=== PATIENT | male | born 1950 | race Caucasian/White ===

== ENCOUNTER → 2016-09-04 | Outpatient (CLI) | payer MEDICARE, BC ==
[2016-09-04 10:45] LABS: ANION GAP 14 (5-19); BLOOD UREA NITROGEN 12 mg/dL (7-20); CARBON DIOXIDE 28 mmol/L (22-30); CHLORIDE 102 mmol/L (98-107); CREATININE RESULT 0.73 mg/dL (0.52-1.25); POTASSIUM 4.4 mmol/L (3.6-5.0); SODIUM 143.8 mmol/L (137-145)
== END ==
LOC: OD 09:13
PROVIDERS: ATTEND Internal Medicine
DX: M10.9 Gout, unspecified (principal); I10 Essential (primary) hypertension
CPT/HCPCS: 36415; 80051; 82565; 84520; 84550

== ENCOUNTER 2017-01-23 09:35 | Day surgery (SDC) | payer MEDICARE, BC ==
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
[~2017-01-23 09:35] MED LIST: EPINEPHRINE INJ 1 MG/10 ML DISP.SYRIN ONE; FLUMAZENIL INJ 0.5 MG/5 ML VIAL ONE; GLUCAGON,HUMAN RECOMB 1 MG INJ ONE; GLYCOPYRROLATE INJ 0.4 MG/2 ML VIAL ONE; LIDOCAINE 2% JELLY 30 ML TUBE ONE; MIDAZOLAM 2 MG/2 ML INJ ONE; NALOXONE HCL INJ/PF 0.4 MG/1 ML SDV ONE; ONDANSETRON HCL INJ/PF 4 MG/2 ML SDV ONE
[2017-01-23] MEDS: FENTANYL CITRATE INJ/PF 100 MCG/2 ML AMPUL ONE ×2 (10:45→10:47)
[2017-01-23 11:55] LABS: ABSOLUTE BASOPHILS # (AUTO) 0.1 10^3/uL (0.0-0.2); ABSOLUTE EOSINOPHILS # (AUTO) 0.3 10^3/uL (0.0-0.6); ABSOLUTE LYMPHOCYTES (AUTO) 1.5 10^3/uL (0.5-4.7); ABSOLUTE MONOCYTES (AUTO) 0.6 10^3/uL (0.1-1.4); ABSOLUTE NEUT (AUTO) 5.9 10^3/uL (1.7-8.2); BASOPHILS % (AUTO) 0.7 % (0-2); EOSINOPHILS % (AUTO) 3.2 % (0-6); HEMATOCRIT 45.2 % (37.9-51.0); HEMOGLOBIN 14.8 g/dL (13.5-17.0); HGB HCT DIFFERENCE -0.8; LYMPHOCYTES % (AUTO) 18.3 % (13-45); MEAN CORPUSCULAR HEMOGLOBIN 30.6 pg (27.0-33.4); MEAN CORPUSCULAR HGB CONC 32.7 g/dL (32.0-36.0); MEAN CORPUSCULAR VOLUME 94 fl (80-97); MONOCYTES % (AUTO) 6.9 % (3-13); RED BLOOD COUNT 4.84 10^6/uL (4.35-5.55); RED CELL DISTRIBUTION WIDTH 14.2 % (11.5-14.0); SEGMENTED NEUTROPHILS % (AUTO) 70.9 % (42-78); WHITE BLOOD COUNT 8.3 10^3/uL (4.0-10.5)
[2017-01-23 11:59] VITALS: BP 124/79
--- NOTE | 2017-01-23 13:42 | OPERATIVE REPORT E ---
Operative Report NAME: TIMMY MARTINEZ : 1950 AGE: 67Y DATE OF SURGERY: 01/23/2017 ROOM: PREOPERATIVE DIAGNOSIS: COLON SCREENING. POSTOPERATIVE DIAGNOSES: 1. DIMUNITIVE RECTAL POLYPS. 2. EXTERNAL HEMORRHOIDS. 3. A 2 MM POLYP; SIGMOID. PROCEDURE: Colonoscopy to the cecum. SURGEON: ANGELITO HOPKINS M.D. ANESTHESIA: Versed 2, fentanyl 100; combination TISSUE REMOVED OR ALTERED: 1. Polyp, sigmoid. 2. Biopsy: Polyps, rectum. COMMENTS: Patient's prep was complete but inadequate. Moderate amount of stool, liquidy, scattered all around the colon. DESCRIPTION: RECTAL EXAM: External hemorrhoids. Dimunitive polyps, rectum. SIGMOID: Diverticulosis. DESCENDING COLON: Diverticulosis. TRANSVERSE COLON: Normal. ASCENDING: Normal. CECUM: Normal. Scope withdrawn: Cecum, ascending, transverse, descending, sigmoid, all the way to the rectum. Patient tolerated the procedure well. Discharged to his room in stable condition. CONCLUSION: 1. DIMUNITIVE POLYPS, RECTUM AND SIGMOID. 2. MILD DIVERTICULOSIS, SIGMOID COLON. PLAN: Because of the inadequate prep, multiplicity of tiny polyps pending biopsy, consideration for follow-up colonoscopy after 1 year with better prep. DICTATING PHYSICIAN: ANGELITO HOPKINS M.D. 1265M [id number] PHY#: [id number] ID: [id number] JOB#: [id number] ACCT: [id number] cc:ANGELITO HOPKINS M.D., MICHAEL M.D. >
--- NOTE | 2017-01-23 14:16 | DISCHARGE SUMMARY E ---
Discharge Summary NAME: TIMMY MARTINEZ : 1950 AGE: 67Y ADMITTED: 01/23/2017 DISCHARGED: 01/23/2017 HISTORY OF PRESENT ILLNESS: The patient is 66, underwent colonoscopy today showed sigmoid diverticulosis, external hemorrhoids. He has rectal bleeding secondary to hemorrhoids. DISCHARGE PLAN: Awaiting biopsy, baseline CBC. Consideration for followup colonoscopy after one year with better prep. Awaiting biopsies. Soft low residue diet. Hold aspirin, nonsteroidal for 5 days. DICTATING PHYSICIAN: ANGELITO HOPKINS M.D. [id number] PHY#: [id number] ID: [id number] JOB#: [id number] ACCT: [id number] cc:ANGELITO HOPKINS M.D., MICHAEL M.D. >
== END 2017-01-23 12:10 | disposition home or self-care (01) ==
LOC: END 09:35
PROVIDERS: ATTEND Specialist
PROC: 0DBP8ZX Excision of Rectum, Via Natural or Artificial Opening Endoscopic, Diagnostic (ICD-10-PCS; 2017-01-23)
PROC: 0DBN8ZX Excision of Sigmoid Colon, Via Natural or Artificial Opening Endoscopic, Diagnostic (ICD-10-PCS; principal; 2017-01-23 10:00)
DX: K63.5 Polyp of colon (principal); K57.30 Diverticulosis of large intestine without perforation or abscess without bleeding; K64.4 Residual hemorrhoidal skin tags; I10 Essential (primary) hypertension; K40.90 Unilateral inguinal hernia, without obstruction or gangrene, not specified as recurrent; Z79.82 Long term (current) use of aspirin
CPT/HCPCS: 45380; 36415; 85025; 88305 ×2; J2250; J3010; J1610; J0171; J2310; J2405; J3490

== ENCOUNTER → 2017-07-31 | Outpatient (CLI) | payer MEDICARE, BC ==
[2017-07-31 09:08] LABS: ABSOLUTE BASOPHILS # (AUTO) 0.1 10^3/uL (0.0-0.2); ABSOLUTE EOSINOPHILS # (AUTO) 0.4 10^3/uL (0.0-0.6); ABSOLUTE MONOCYTES (AUTO) 0.8 10^3/uL (0.1-1.4); ABSOLUTE NEUT (AUTO) 7.9 10^3/uL (1.7-8.2); BASOPHILS % (AUTO) 0.7 % (0-2); EOSINOPHILS % (AUTO) 3.7 % (0-6); HEMOGLOBIN 15.1 g/dL (13.5-17.0); LYMPHOCYTES % (AUTO) 17.7 % (13-45); MEAN CORPUSCULAR HEMOGLOBIN 30.5 pg (27.0-33.4); MEAN CORPUSCULAR HGB CONC 33.5 g/dL (32.0-36.0); MEAN CORPUSCULAR VOLUME 91 fl (80-97); MONOCYTES % (AUTO) 6.9 % (3-13); PLATELET COUNT 211 10^3/uL (150-450); RED BLOOD COUNT 4.94 10^6/uL (4.35-5.55); RED CELL DISTRIBUTION WIDTH 14.1 % (11.5-14.0); TOTAL CELLS COUNTED % (AUTO) 100 %; WHITE BLOOD COUNT 11.1 10^3/uL (4.0-10.5)
[2017-07-31 09:41] LABS: ALANINE AMINOTRANSFERASE 40 U/L (21-72); ALBUMIN 4.4 g/dL (3.5-5.0); ALKALINE PHOSPHATASE 70 U/L (38-126); ANION GAP 13 (5-19); ASPARTATE AMINO TRANSFERASE 23 U/L (17-59); BILIRUBIN,DIRECT 0.4 mg/dL (0.0-0.4); BILIRUBIN,TOTAL 0.5 mg/dL (0.2-1.3); BLOOD UREA NITROGEN 16 mg/dL (7-20); CALCIUM 10.2 mg/dL (8.4-10.2); CARBON DIOXIDE 25 mmol/L (22-30); CHLORIDE 104 mmol/L (98-107); CHOLESTEROL 155.94 mg/dL (0-200); GLUCOSE 102 mg/dL (75-110); POTASSIUM 4.4 mmol/L (3.6-5.0); TOTAL PROTEIN 6.8 g/dL (6.3-8.2); TRIGLYCERIDES 217 mg/dL (<150)
[2017-07-31 09:52] LABS: DIRECT LDL 88 mg/dL (<100)
[2017-07-31 10:16] LABS: VLDL CHOLESTEROL 43.4 mg/dL (10-31)
== END ==
LOC: OD 08:26
PROVIDERS: ATTEND Internal Medicine
DX: I10 Essential (primary) hypertension (principal); R35.1 Nocturia; E78.5 Hyperlipidemia, unspecified; R53.83 Other fatigue; M10.9 Gout, unspecified
CPT/HCPCS: 36415; 80053; 80061; 84153; 84443; 85025

== ENCOUNTER → 2018-07-09 | Outpatient (CLI) | payer MEDICARE, BC ==
--- NOTE | 2018-07-09 11:15 | RADIOLOGY REPORT (SQ) ---
EXAM DESCRIPTION: CT HEAD WITHOUT COMPLETED DATE/TIME: 07/09/2018 10:57 am REASON FOR STUDY: CVA (I63.9) I63.9 CEREBRAL INFARCTION, UNSPECIFIED COMPARISON: None. TECHNIQUE: Axial images acquired through the brain without intravenous contrast. Images reviewed wi th bone, brain and subdural windows. Additional sagittal and coronal reconstructions were generated. Images stored on PACS. All CT scanners at this facility use dose modulation, iterative reconstruction, and/or weight based d osing when appropriate to reduce radiation dose to as low as reasonably achievable (ALARA). [facility]: Dose Right [facility]: CareDose [facility]: Dose Right [facility]: Teradose 4D [facility]: Qualvu RADIATION DOSE: CT Rad equipment meets quality standard of care and radiation dose reduction techniq ues were employed. CTDIvol: 48.7 mGy. DLP: 955 mGy-cm.mGy. LIMITATIONS: None. FINDINGS: VENTRICLES: Mildly prominent, expected for patient age. CEREBRUM: No masses. No hemorrhage. No midline shift. Focal area of hypoattenuation within the lef t periventricular temporal lobe compatible with age-indeterminate lacunar infarct. No additional kristine dence of acute large vascular territory infarct. CEREBELLUM: No masses. No hemorrhage. No alteration of density. No evidence for acute infarction. EXTRAAXIAL SPACES: No fluid collections. No masses. ORBITS AND GLOBE: No intra- or extraconal masses. Normal contour of globe without masses. CALVARIUM: No fracture. PARANASAL SINUSES: No fluid or mucosal thickening. SOFT TISSUES: No mass or hematoma. OTHER: Scattered vascular calcifications. IMPRESSION: Focal area of hypoattenuation within the periventricular left temporal lobe compatible w ith age-indeterminate lacunar infarct. If clinical concern for acute ischemic event MRI would be mor e sensitive for further characterization of chronicity. Otherwise, no evidence of acute intracranial process. EVIDENCE OF ACUTE STROKE: Age-indeterminate lacunar infarct Findings discussed with Dr. Daly at 1108 a.m. on 07/09/2018. TECHNICAL DOCUMENTATION: JOB ID: [id number] Quality ID # [id number]: Final reports with documentation of one or more dose reduction techniques (e.g., Au tomated exposure control, adjustment of the mA and/or kV according to patient size, use of iterative reconstruction technique) 2010 [employer]- All Rights Reserved Reading location - IP/workstation name: [email or web address] / [email or web address]
== END ==
LOC: RAD 10:39
PROVIDERS: ATTEND Internal Medicine
DX: I63.9 Cerebral infarction, unspecified (principal)
CPT/HCPCS: 70450

== ENCOUNTER → 2018-07-10 | Outpatient (CLI) | payer MEDICARE, BC ==
[2018-07-10 10:14] LABS: ABSOLUTE BASOPHILS # (AUTO) 0.1 10^3/uL (0.0-0.2); ABSOLUTE EOSINOPHILS # (AUTO) 0.2 10^3/uL (0.0-0.6); ABSOLUTE LYMPHOCYTES (AUTO) 1.4 10^3/uL (0.5-4.7); ABSOLUTE MONOCYTES (AUTO) 0.5 10^3/uL (0.1-1.4); ABSOLUTE NEUT (AUTO) 4.3 10^3/uL (1.7-8.2); BASOPHILS % (AUTO) 0.9 % (0-2); EOSINOPHILS % (AUTO) 3.4 % (0-6); HEMATOCRIT 46.8 % (37.9-51.0); LYMPHOCYTES % (AUTO) 22.1 % (13-45); MEAN CORPUSCULAR HEMOGLOBIN 31.3 pg (27.0-33.4); MEAN CORPUSCULAR HGB CONC 34.2 g/dL (32.0-36.0); MEAN CORPUSCULAR VOLUME 92 fl (80-97); MONOCYTES % (AUTO) 8.1 % (3-13); PLATELET COUNT 208 10^3/uL (150-450); RED BLOOD COUNT 5.11 10^6/uL (4.35-5.55); RED CELL DISTRIBUTION WIDTH 14.2 % (11.5-14.0); SEGMENTED NEUTROPHILS % (AUTO) 65.5 % (42-78); TOTAL CELLS COUNTED % (AUTO) 100 %; WHITE BLOOD COUNT 6.5 10^3/uL (4.0-10.5)
[2018-07-10 10:42] LABS: ALANINE AMINOTRANSFERASE 36 U/L (21-72); ALBUMIN 4.8 g/dL (3.5-5.0); ALKALINE PHOSPHATASE 69 U/L (38-126); ANION GAP 11 (5-19); ASPARTATE AMINO TRANSFERASE 29 U/L (17-59); BILIRUBIN,DIRECT 0.2 mg/dL (0.0-0.4); BILIRUBIN,TOTAL 0.7 mg/dL (0.2-1.3); BLOOD UREA NITROGEN 13 mg/dL (7-20); CARBON DIOXIDE 29 mmol/L (22-30); CHLORIDE 101 mmol/L (98-107); CHOLESTEROL 136.72 mg/dL (0-200); GLUCOSE 100 mg/dL (75-110); POTASSIUM 4.5 mmol/L (3.6-5.0); SODIUM 140.7 mmol/L (137-145); TOTAL PROTEIN 7.2 g/dL (6.3-8.2); TRIGLYCERIDES 117 mg/dL (<150)
[2018-07-10 10:54] LABS: DIRECT LDL 86 mg/dL (<100)
== END ==
LOC: OD 09:18
PROVIDERS: ATTEND Internal Medicine
DX: I10 Essential (primary) hypertension (principal); E78.5 Hyperlipidemia, unspecified; R53.83 Other fatigue; Z86.73 Personal history of transient ischemic attack (TIA), and cerebral infarction without residual deficits
CPT/HCPCS: 36415; 80053; 80061; 84443; 85025

== ENCOUNTER → 2018-07-12 | Outpatient (CLI) | payer MEDICARE, BC ==
--- NOTE | 2018-07-12 11:08 | RADIOLOGY REPORT (SQ) ---
EXAM DESCRIPTION: ORBITS 4 COMPLETED DATE/TIME: 07/12/2018 10:56 am REASON FOR STUDY: FOR MRI SCREENING I63.9 CEREBRAL INFARCTION, UNSPECIFIED COMPARISON: None. NUMBER OF VIEWS: Three view. TECHNIQUE: Images of the facial bones acquired. LIMITATIONS: None. FINDINGS: ORBITS: There is a metallic foreign body in the periorbital soft tissues on the left. SINUSES: No mucosal thickening. No air fluid levels. FACIAL BONES: No fracture. OTHER: No other significant finding. IMPRESSION: Foreign body periorbital soft tissues on the left. COMMENT: MRI is contraindicated. TECHNICAL DOCUMENTATION: JOB ID: [id number] [employer]- All Rights Reserved Reading location - IP/workstation name: [email or web address]
== END ==
LOC: RAD 10:20
PROVIDERS: ATTEND Internal Medicine
DX: I63.9 Cerebral infarction, unspecified (principal); M79.5 Residual foreign body in soft tissue
CPT/HCPCS: 70200

== ENCOUNTER → 2018-07-15 | Outpatient (CLI) | payer MEDICARE, BC ==
--- NOTE | 2018-07-15 14:13 | RADIOLOGY REPORT (SQ) ---
EXAM DESCRIPTION: CAROTID DOPPLER COMPLETED DATE/TIME: 07/15/2018 1:50 pm REASON FOR STUDY: TIA G45.9 TRANSIENT CEREBRAL ISCHEMIC ATTACK, UNSPECIFIED I63.9 CEREBRAL INFARCT ION, UNSPECIFIED COMPARISON: None. TECHNIQUE: Grayscale ultrasound, Doppler velocity and spectra, and color Doppler images acquired of the extra-cranial carotid and vertebral arteries. Images stored on PACS. LIMITATIONS: None. FINDINGS: RIGHT CAROTID CCA Velocities: Within normal limits. ICA Velocities Peak systolic 82 cm/s. End diastolic 31 cm/s. Proximal ICA/CCA peak systolic ratio 1.31. There is some shadowing plaque in the carotid bulb and proximal external carotid. LEFT CAROTID CCA Velocities: Within normal limits. ICA Velocities Peak systolic 75 cm/s. End diastolic 29 cm/s. Proximal ICA/CCA peak systolic ratio 0.83. There is dense shadowing plaque in the carotid bulb. VERTEBRAL ARTERIES: Antegrade flow. Normal waveforms. SUBCLAVIAN ARTERIES: No finding. OTHER: No other significant finding. IMPRESSION: NO HEMODYNAMICALLY SIGNIFICANT STENOSIS. COMMENT: Quality ID #[id number]: Velocity criteria are extrapolated from the diameter data as defined by t he Society of Radiologists in Ultrasound Consensus Conference. Radiology 2003: 229; 340-346. TECHNICAL DOCUMENTATION: JOB ID: [id number] [employer]- All Rights Reserved Reading location - IP/workstation name: [email or web address]
--- NOTE | 2018-07-16 23:04 | XCELERA REPORT ---
[address] [address] Transthoracic Echocardiogram Report Name: TIMMY MARTINEZ Age: 68 yrs Gender: Male : 1950 Patient Status: Outpatient Patient Location: Study Date: 07/15/2018 10:32 AM Height: 70 in Weight: 210 lb BSA: 2.1 m2 Procedure: A two-dimensional transthoracic echocardiogram with color flow and Doppler was performed. The study was technically difficult with many images being suboptimal in quality. Reason For Study: TIA History: TIA. Ordering Physician: FABIENNE MACHADO Performed By: Meng Pollock Interpretation Summary The left ventricle is normal in size. There is mild concentric left ventricular hypertrophy. LV EF is 65% The left ventricular ejection fraction is within normal limits. Doppler measurements suggest impaired left ventricular relaxation, which is associated with grade I/IV or mild diastolic dysfunction The left ventricular wall motion is normal. There is no thrombus. There is no ventricular septal defect visualized. The right ventricle is not well visualized secondary to technical limitations The right atrium is normal. The left atrial size is normal. The interatrial septum is intact with no evidence for an atrial septal defect. There is no evidence of mitral valve prolapse. There is no vegetation seen on the mitral valve. There is no mitral valve stenosis. There is a trace amount of mitral regurgitation There is no aortic valvular vegetation. There is no aortic valve stenosis There is no LVOT obstruction. No aortic regurgitation is present. There is no tricuspid stenosis. There is a trace to mild amount of tricuspid regurgitation There is mild pulmonary hypertension by echo RVSP is 29 to 34 mm of Hg , with RA mean of 5 to 10. There is no pulmonic valvular stenosis. There is a trace amount of pulmonic regurgitation The aortic root is normal size. The inferior vena cava appeared normal and decreased > 50% with respiration (RAP 5-10 mmHg) There is no pericardial effusion. MMode/2D Measurements & Calculations RVDd: 3.2 cm LVIDd: 4.1 cm FS: 37.2 % Ao root diam: 3.0 cm IVSd: 1.2 cm LVIDs: 2.6 cm EDV(Teich): 74.0 ml Ao root area: 6.9 cm2 LVPWd: 1.2 cm ESV(Teich): 23.9 ml LA dimension: 3.9 cm EF(Teich): 67.7 % Doppler Measurements & Calculations MV E max obed: MV P1/2t max obed: Ao V2 max: LV V1 max P.8 cm/sec 68.9 cm/sec 118.7 cm/sec 5.2 mmHg MV A max obed: MV P1/2t: 68.7 msec Ao max PG: LV V1 max: 77.1 cm/sec MVA(P1/2t): 3.2 cm2 5.6 mmHg 113.9 cm/sec MV E/A: 0.85 MV dec slope: 293.5 cm/sec2 MV dec time: 0.20 sec PA V2 max: PI end-d obed: TR max obed: MV P1/2t-pr_phl: 102.2 cm/sec 117.3 cm/sec 243.0 cm/sec 68.7 msec PA max PG: TR max P.2 mmHg 23.6 mmHg Left Ventricle The left ventricle is normal in size. There is mild concentric left ventricular hypertrophy. LV EF is 65%. The left ventricular ejection fraction is within normal limits. Doppler measurements suggest impaired left ventricular relaxation, which is associated with grade I/IV or mild diastolic dysfunction. The left ventricular wall motion is normal. There is no thrombus. There is no ventricular septal defect visualized. Right Ventricle The right ventricle is not well visualized secondary to technical limitations. Atria The right atrium is normal. The left atrial size is normal. The interatrial septum is intact with no evidence for an atrial septal defect. Mitral Valve There is mild mitral leaflet calcification. There is no evidence of mitral valve prolapse. There is no vegetation seen on the mitral valve. There is no mitral valve stenosis. There is a trace amount of mitral regurgitation. Aortic Valve There is no aortic valvular vegetation. There is no aortic valve stenosis. There is no LVOT obstruction. No aortic regurgitation is present. Tricuspid Valve There is no tricuspid stenosis. There is a trace to mild amount of tricuspid regurgitation. There is mild pulmonary hypertension by echo. RVSP is 29 to 34 mm of Hg , with RA mean of 5 to 10. Pulmonic Valve There is no pulmonic valvular stenosis. There is a trace amount of pulmonic regurgitation. Great Vessels The aortic root is normal size. The inferior vena cava appeared normal and decreased > 50% with respiration (RAP 5-10 mmHg). Effusions There is no pericardial effusion. : FABIENNE MACHADO > Belkys Jordan
== END ==
LOC: SP 09:58
PROVIDERS: ATTEND Internal Medicine
DX: G45.9 Transient cerebral ischemic attack, unspecified (principal)
CPT/HCPCS: 93306; 93880

== ENCOUNTER → 2018-07-23 | Outpatient (CLI) | payer MEDICARE, BC ==
[2018-07-23 10:09] LABS: ABSOLUTE EOSINOPHILS # (AUTO) 0.3 10^3/uL (0.0-0.6); ABSOLUTE LYMPHOCYTES (AUTO) 1.5 10^3/uL (0.5-4.7); ABSOLUTE MONOCYTES (AUTO) 0.5 10^3/uL (0.1-1.4); ABSOLUTE NEUT (AUTO) 4.4 10^3/uL (1.7-8.2); BASOPHILS % (AUTO) 0.7 % (0-2); EOSINOPHILS % (AUTO) 3.8 % (0-6); HEMATOCRIT 44.1 % (37.9-51.0); LYMPHOCYTES % (AUTO) 22.5 % (13-45); MEAN CORPUSCULAR HEMOGLOBIN 31.3 pg (27.0-33.4); MEAN CORPUSCULAR HGB CONC 34.1 g/dL (32.0-36.0); MEAN CORPUSCULAR VOLUME 92 fl (80-97); MONOCYTES % (AUTO) 7.4 % (3-13); PLATELET COUNT 205 10^3/uL (150-450); RED BLOOD COUNT 4.81 10^6/uL (4.35-5.55); RED CELL DISTRIBUTION WIDTH 13.9 % (11.5-14.0); SEGMENTED NEUTROPHILS % (AUTO) 65.6 % (42-78); TOTAL CELLS COUNTED % (AUTO) 100 %; WHITE BLOOD COUNT 6.6 10^3/uL (4.0-10.5)
[2018-07-23 10:27] LABS: ALANINE AMINOTRANSFERASE 36 U/L (21-72); ALBUMIN 4.5 g/dL (3.5-5.0); ALKALINE PHOSPHATASE 63 U/L (38-126); ANION GAP 9 (5-19); ASPARTATE AMINO TRANSFERASE 24 U/L (17-59); BILIRUBIN,DIRECT 0.1 mg/dL (0.0-0.4); BILIRUBIN,TOTAL 0.4 mg/dL (0.2-1.3); BLOOD UREA NITROGEN 15 mg/dL (7-20); CALCIUM 9.8 mg/dL (8.4-10.2); CARBON DIOXIDE 28 mmol/L (22-30); CHLORIDE 101 mmol/L (98-107); CHOLESTEROL 101.51 mg/dL (0-200); GLUCOSE 100 mg/dL (75-110); POTASSIUM 4.2 mmol/L (3.6-5.0); SODIUM 137.7 mmol/L (137-145); TOTAL PROTEIN 6.7 g/dL (6.3-8.2); TRIGLYCERIDES 128 mg/dL (<150); URIC ACID 4.4 mg/dL (3.5-8.5)
[2018-07-23 10:37] LABS: DIRECT LDL 58 mg/dL (<100)
== END ==
LOC: OD 09:23
PROVIDERS: ATTEND Internal Medicine
DX: E78.5 Hyperlipidemia, unspecified (principal); I10 Essential (primary) hypertension; M10.9 Gout, unspecified; I63.9 Cerebral infarction, unspecified; R53.83 Other fatigue
CPT/HCPCS: 36415; 80053; 80061; 84443; 84550; 85025

== ENCOUNTER → 2019-10-21 | Outpatient (CLI) | payer MEDICARE, BC ==
[2019-10-21 09:19] LABS: ABSOLUTE BASOPHILS # (AUTO) 0.1 10^3/uL (0.0-0.2); ABSOLUTE EOSINOPHILS # (AUTO) 0.2 10^3/uL (0.0-0.6); ABSOLUTE LYMPHOCYTES (AUTO) 1.4 10^3/uL (0.5-4.7); ABSOLUTE MONOCYTES (AUTO) 0.5 10^3/uL (0.1-1.4); ABSOLUTE NEUT (AUTO) 3.8 10^3/uL (1.7-8.2); EOSINOPHILS % (AUTO) 4.1 % (0-6); HEMATOCRIT 46.7 % (37.9-51.0); HEMOGLOBIN 15.5 g/dL (13.5-17.0); LYMPHOCYTES % (AUTO) 23.4 % (13-45); MEAN CORPUSCULAR HEMOGLOBIN 31.2 pg (27.0-33.4); MEAN CORPUSCULAR HGB CONC 33.2 g/dL (32.0-36.0); MEAN CORPUSCULAR VOLUME 94 fl (80-97); MONOCYTES % (AUTO) 8.2 % (3-13); PLATELET COUNT 185 10^3/uL (150-450); RED BLOOD COUNT 4.97 10^6/uL (4.35-5.55); RED CELL DISTRIBUTION WIDTH 14.3 % (11.5-14.0); SEGMENTED NEUTROPHILS % (AUTO) 63.3 % (42-78); TOTAL CELLS COUNTED % (AUTO) 100 %; WHITE BLOOD COUNT 5.9 10^3/uL (4.0-10.5)
[2019-10-21 09:38] LABS: ALBUMIN 4.1 g/dL (3.5-5.0); ALKALINE PHOSPHATASE 64 U/L (38-126); ANION GAP 9 (5-19); ASPARTATE AMINO TRANSFERASE 29 U/L (17-59); BILIRUBIN,TOTAL 0.7 mg/dL (0.2-1.3); BLOOD UREA NITROGEN 12 mg/dL (7-20); CALCIUM 9.2 mg/dL (8.4-10.2); CARBON DIOXIDE 25 mmol/L (22-30); CHLORIDE 105 mmol/L (98-107); GLUCOSE 115 mg/dL (75-110); POTASSIUM 4.2 mmol/L (3.6-5.0); TOTAL PROTEIN 6.6 g/dL (6.3-8.2); TRIGLYCERIDES 158 mg/dL (<150)
[2019-10-21 09:49] LABS: DIRECT LDL 83 mg/dL (<100)
[2019-10-21 10:08] LABS: VLDL CHOLESTEROL 31.6 mg/dL (10-31)
== END ==
LOC: OD 08:40
PROVIDERS: ATTEND Internal Medicine
DX: I10 Essential (primary) hypertension (principal); E78.5 Hyperlipidemia, unspecified; R35.1 Nocturia; R53.83 Other fatigue
CPT/HCPCS: 36415; 80053; 80061; 84153; 84443; 85025